=== PATIENT | female | born 1935 | race Caucasian/White ===

== ENCOUNTER → 2016-09-08 | Outpatient (CLI) | payer MEDICARE, OTHER ==
--- NOTE | 2016-09-08 14:16 | PCVCIMAG ---
APPROVED REPORT Patient Location: Out-Patient Indications Stenosis Doppler Spectral Velocity Analysis PSV / EDVPSV / EDV ECA (R) 90 / 4 cm/sECA (L) 139 / 11 cm/s dICA (R) 76 / 19 cm/sdICA (L) 71 / 16 cm/s [place] (R) 91 / 31 cm/smICA (L) 107 / 20 cm/s pICA (R) 88 / 23 cm/spICA (L) 103 / 19 cm/s Bulb (R) 76 / 13 cm/sBulb (L) 92 / 14 cm/s dCCA (R) 67 / 13 cm/sdCCA (L) 74 / 16 cm/s mCCA (R) 51 / 11 cm/smCCA (L) 67 / 13 cm/s Vert (R) 48 / 8 cm/sVert (L) 46 / 11 cm/s Findings The right carotid bulb has moderate calcified plaque. The right proximal internal carotid artery shows <40% stenosis. The right common carotid artery shows no significant stenosis. The right external carotid artery shows <40% stenosis. The left carotid bulb has moderate calcified plaque. The left proximal internal carotid artery shows 40-50% stenosis. The left common carotid artery shows no significant stenosis. The left external carotid artery shows <50% stenosis. Conclusion 1. Right internal carotid artery stenosis (<40%) 2. Left internal carotid artery stenosis (40-50%) 3. Antegrade vertebral flow
--- NOTE | 2016-09-08 15:53 | PCVCIMAG ---
APPROVED REPORT Study performed: 09/08/2016 13:42:15 EXAM: Comprehensive 2D, Doppler, and color-flow Echocardiogram Patient Location: Echo lab Status: routine Other Information Study Quality: Good Indications Aortic Valve Disease Diabetes Hypertension/HDD 2D Dimensions IVSd: 8.78 (7-11mm)LVOT Diam: 20.16 (18-24mm) LVDd: 43.04 mm PWd: 7.62 (7-11mm)Ascending Ao: 29.74 (22-36mm) LVDs: 23.37 (25-40mm) Left Atrium: 29.96 (27-40mm) Aortic Root: 20.05 mm LV Single Plane 4CH: 65.95 % LV Single Plane 2CH: 60.38 %[place]'s LVEF: 63.17 % Biplane EF: 62.7 % Volumes Left Atrial Volume (Systole) Single Plane 4CH: 48.13 mLSingle Plane 2CH: 46.78 mL LA ESV Index: 28.00 mL/m2 Aortic Valve AoV Peak Francisco Javier.: 2.30 m/s AO Peak Gr.: 22.57 mmHgLVOT Max P.44 mmHg AO Mean Gr.: 11.56 mmHgLVOT Mean P.87 mmHg AO V2 Mean: 1.63 m/sLVOT Max V: 0.94 m/s AO V2 VTI: 53.02 cmLVOT Mean V: 0.64 m/s MARY (VTI): 1.26 [id number] V1 VTI: 20.88 cm MARY Vmax: 1.30 cm2 AI Vmax: 4.08 m/sSV (LVOT): 66.61 mL AI Dubois: 1.91 m/s2 AI PHT: 618.97 ms Mitral Valve E/A Ratio: 0.6 MV Decel. Time: 283.13 ms MV E Max Francisco Javier.: 0.38 m/s MV A Francisco Javier.: 0.60 m/s IVRT: 103.81 ms TDI E/Lateral E': 12.67E/Medial E': 12.67 Medial E' Francisco Javier.: 0.03 m/s Lateral E' Francisco Javier.: 0.03 m/s Pulmonary Valve PV Peak Francisco Javier.: 0.96 m/sPV Peak Gr.: 3.72 mmHg Pulmonary Vein P Vein S: 0.47 m/sP Vein A: 0.28 m/s P Vein D: 0.37 m/sP Vein A Dur.: 93.4 msec P Vein S/D Ratio: 1.27 Tricuspid Valve TV Vmax: 0.54 m/s Left Ventricle The left ventricle is normal size. There is normal LV segmental wall motion. There is normal left ventricular wall thickness. Left ventricular systolic function is normal. The left ventricular ejection fraction is within the normal range. LVEF is 60-65%. Grade I diastolic dysfunction Right Ventricle The right ventricle is normal size. The right ventricular systolic function is normal. Atria The left atrium size is normal. The right atrium size is normal. Aortic Valve Aortic valve is trileaflet, moderately calcified. Mild aortic regurgitation. Moderate aortic stenosis. Peak aortic valve gradient is 21_mmHg. Highest mean aortic valve gradient is 12 mmHg Calculated MARY by the continuity equation is 1.3 cm2. Calculated aortic valve area is 1.3 cm2 with maximum pressure gradient of 21 mmHg and mean pressure gradient of 12 mmHg. Mitral Valve The mitral valve is normal in structure. There is no mitral valve regurgitation noted. No evidence of mitral valve stenosis. Tricuspid Valve The tricuspid valve is normal in structure. There is no tricuspid valve regurgitation noted. Pulmonic Valve The pulmonary valve is normal in structure. There is no pulmonic valvular regurgitation. Great Vessels The aortic root is normal in size. The ascending aorta is normal in size. IVC is normal in size and collapses with >50% inspiration The pulmonary artery is normal. Pericardium There is no pericardial effusion. There is no pleural effusion. <Conclusion> LVEF is 60-65%. Normal LV segmental wall motion. Grade I diastolic dysfunction Aortic valve is trileaflet, moderately calcified. Mild aortic regurgitation, mild stenosis (aortic valve area is 1.3 cm2, peal pressure gradient of 21 mmHg, mean pressure gradient of 12 mmHg). Moderate mitral annular calcification. No mitral insufficiency Pulmonary artery pressure could not be reliably ascertained. There is no pericardial effusion.
== END | disposition home or self-care (01) ==
LOC: PCVCIMAG 12:52
PROVIDERS: ATTEND Internal Medicine
DX: I65.23 Occlusion and stenosis of bilateral carotid arteries (principal); I35.0 Nonrheumatic aortic (valve) stenosis; E11.9 Type 2 diabetes mellitus without complications; E78.5 Hyperlipidemia, unspecified; I10 Essential (primary) hypertension; Z85.038 Personal history of other malignant neoplasm of large intestine; Z90.49 Acquired absence of other specified parts of digestive tract; Z79.82 Long term (current) use of aspirin
CPT/HCPCS: 80061; 93306; 93880; G0463

== ENCOUNTER → 2017-09-10 | Outpatient (CLI) | payer MEDICARE, OTHER | END | disposition home or self-care (01) | LOC: PCVCCLINIC 14:19 | DX: I35.0 Nonrheumatic aortic (valve) stenosis (principal); I10 Essential (primary) hypertension; E78.5 Hyperlipidemia, unspecified; I65.23 Occlusion and stenosis of bilateral carotid arteries; E11.9 Type 2 diabetes mellitus without complications; Z79.899 Other long term (current) drug therapy | CPT/HCPCS: 80061; 93005; G0463 ==

== ENCOUNTER → 2018-01-23 | Outpatient (CLI) | payer MEDICARE, OTHER ==
--- NOTE | 2018-01-23 14:20 | PCVCIMAG ---
APPROVED REPORT Indications Stenosis Risk Factors Hypertension: Hyperlipidemia Diabetes, Doppler Spectral Velocity Analysis PSV / EDVPSV / EDV ECA (R) 89 / 0 cm/sECA (L) 102 / 5 cm/s dICA (R) 83 / 21 cm/sdICA (L) 74 / 22 cm/s [place] (R) 73 / 19 cm/smICA (L) 76 / 16 cm/s pICA (R) 103 / 24 cm/spICA (L) 130 / 25 cm/s Bulb (R) 55 / 12 cm/sBulb (L) 72 / 13 cm/s dCCA (R) 53 / 9 cm/sdCCA (L) 69 / 11 cm/s mCCA (R) 69 / 10 cm/smCCA (L) 54 / 9 cm/s Vert (R) 47 / 10 cm/sVert (L) 48 / 8 cm/s ICA/CCA 1.94ICA/CCA 1.88 Basic Measurements Blood Pressure: Pulses: Right Left RightLeft Brachial(Sitting) 146/[id number]/80mmHgTemporal Real Time B-Mode Imaging Vert. (R)AntegradeVert. (L)Antegrade Findings The right carotid bulb has moderate calcified plaque. The right proximal internal carotid artery shows <40% stenosis. The right common carotid artery shows no significant stenosis. The right external carotid artery shows no significant stenosis. The left carotid bulb has moderate calcified plaque. The left proximal internal carotid artery shows 40-50% stenosis. The left common carotid artery shows no significant stenosis. The left external carotid artery shows no significant stenosis. Conclusion 1. Right internal carotid artery stenosis (<40%) 2. Left internal carotid artery stenosis (40-50%) 3. Left common carotid artery stenosis (<40%) 4. Antegrade vertebral flow Similar to a study dated August 2016
== END | disposition home or self-care (01) ==
LOC: PCVCIMAG 13:08
PROVIDERS: ATTEND Internal Medicine
DX: I65.23 Occlusion and stenosis of bilateral carotid arteries (principal); I35.0 Nonrheumatic aortic (valve) stenosis; I10 Essential (primary) hypertension; E78.5 Hyperlipidemia, unspecified; E11.9 Type 2 diabetes mellitus without complications; E78.00 Pure hypercholesterolemia, unspecified; H34.211 Partial retinal artery occlusion, right eye; Z79.82 Long term (current) use of aspirin
CPT/HCPCS: 36415; 80061; 93005; 93880; G0463

== ENCOUNTER → 2018-04-03 | Outpatient (CLI) | payer MEDICARE, OTHER | END | disposition home or self-care (01) | LOC: PCVCCLINIC 13:14 | PROVIDERS: ATTEND Internal Medicine | DX: I10 Essential (primary) hypertension (principal); I35.0 Nonrheumatic aortic (valve) stenosis; I95.1 Orthostatic hypotension; R06.02 Shortness of breath; E78.5 Hyperlipidemia, unspecified; I65.23 Occlusion and stenosis of bilateral carotid arteries; E11.9 Type 2 diabetes mellitus without complications; E78.00 Pure hypercholesterolemia, unspecified; Z79.82 Long term (current) use of aspirin | CPT/HCPCS: 36415; 80061; G0463 ==

== ENCOUNTER → 2018-05-01 | Outpatient (CLI) | payer MEDICARE, OTHER ==
[~2018-05-01] MED LIST: REGADENOSON 0.4 MG/5 ML DISP.SYRIN. IV ONE
--- NOTE | 2018-05-01 16:50 | PCVCIMAG ---
APPROVED REPORT Imaging Protocol: Rest Tc-99m/Stress Tc-99m 1 day Study performed: 05/01/2018 09:18:30 Indication: Dyspnea, Progressive Fatigue, Near Syncope Patient Location: Out-Patient Stress Nurse: Nina Hess RN, Christy Vieyra RN [place] Tech:Shyanne WILBERT MayorgaMT Ht: 5 ft 3 in Wt: 178 lbs BSA: 1.84 m2 HR: 58 bpm BP: 190/77 mmHg BMI: 31.5 Rhythm: Sinus Rhythm, Left anterior fascicular block Medical History Medical History: HTN, Diabetes, CVD Medications: ASA, Atorvastatin, Lisinopril Allergies: No known drug allergies Cardiac Risk Factors: Age Pretest Chest Pain Characteristics: No chest pain Resting Data Rest SPECT myocardial perfusion imaging was performed in supine position 45 minutes following the intravenous injection of 10.4 mCi of Tc-99m Sestamibi. Time of rest injection: 929 Date: 05/01/2018 Administration Route: IV Administration Site: Right AC Pharmacologic Stress Pharmacologic stress test was performed by injecting Regadenoson 0.4 mg IV push over 10-15 seconds immediately followed by the intravenous injection of 32.8 mCi of Tc-99m Sestamibi. Time of stress injection: 1050 Date: 05/01/2018 Administration Route: IV Administration Site: Right AC Gated Stress SPECT was performed 45 minutes after stress injection. The images were gated to evaluate regional wall motion and calculate left ventricular ejection fraction. Comments Prior Nuclear Stress Test 2014: Nonischemic Stress Test Details Stress Test: Pharmacologic stress testing performed using 0.4 mg of regadenoson per 5 mL given IV over 10 seconds. Reason for pharmacologic stress test: Unsteady gait. HRMax Heart Rate (APMHR): 136 bpm Resting HR: 58 bpmTarget HR (85% APMHR): 115 bpm Max HR Achieved: 89 bpm % of APMHR: 65 Recovery HR: 81 bpm BP Resting BP: 190/77 mmHg Max BP: 192/81 mmHg Recovery BP: 166/78 mmHg ECG Resting ECG: Sinus Bradycardia, left anterior fascicular block Stress ECG: Sinus Rhythm, left anterior fascicular block ST Change: None Maximum ST Deviation: 0 mm Arrhythmia: None Recovery ECG: Sinus Rhythm, left anterior fascicular block Recovery ST Change: None Recovery ST Deviation: 0 mm Recovery Arrhythmia: None Clinical Reason for Termination: Completed protocol Stress Symptoms: None Exercise duration: 0 min 55 sec Stress ECG Conclusion ECG: Non-ischemic Clinical: Non-ischemic Study Quality Study: Good Study Data Post stress, the left ventricular ejection was 66%.. SSS: 5 SRS: 0 SDS: 5 TID = 1.13. Perfusion No evidence of stress induced ischemia or prior myocardial infarction. Wall Motion Normal left ventricular size and function with no regional wall motion abnormalities. Nuclear Conclusion No evidence of stress induced ischemia or prior myocardial infarction. Normal left ventricular size and function with no regional wall motion abnormalities. Post stress, the left ventricular ejection was 66%. No prior study available for comparison. Interpreted by: Julio Jimenez MD Electronically Approved: 05/01/2018 15:22:09 <Conclusion> ECG: Non-ischemic Clinical: Non-ischemic
== END | disposition home or self-care (01) ==
LOC: PCVCIMAG 13:14
PROVIDERS: ATTEND Internal Medicine
DX: R55 Syncope and collapse (principal); R06.00 Dyspnea, unspecified; R53.83 Other fatigue; I35.0 Nonrheumatic aortic (valve) stenosis; E11.9 Type 2 diabetes mellitus without complications
CPT/HCPCS: 78452; 93017; A9500; J2785

== ENCOUNTER → 2018-10-30 | Outpatient (CLI) | payer MEDICARE, OTHER | END | disposition home or self-care (01) | LOC: PCVCCLINIC 14:00 | PROVIDERS: ATTEND Internal Medicine | DX: I10 Essential (primary) hypertension (principal); I35.0 Nonrheumatic aortic (valve) stenosis; I95.1 Orthostatic hypotension; R06.02 Shortness of breath; E78.5 Hyperlipidemia, unspecified; I65.23 Occlusion and stenosis of bilateral carotid arteries; E11.9 Type 2 diabetes mellitus without complications | CPT/HCPCS: 93005; G0463 ==

== ENCOUNTER → 2018-12-10 | Outpatient (CLI) | payer MEDICARE, OTHER ==
--- NOTE | 2018-12-10 16:26 | PCVCIMAG ---
APPROVED REPORT Indications Stenosis CVA/TIA: Motor Deficit, Risk Factors Hypertension: Hyperlipidemia Diabetes Doppler Spectral Velocity Analysis PSV / EDVPSV / EDV ECA (R) 107 / 5 cm/sECA (L) 167 / 14 cm/s dICA (R) 76 / 19 cm/sdICA (L) 64 / 16 cm/s [place] (R) 86 / 22 cm/smICA (L) 128 / 26 cm/s pICA (R) 92 / 19 cm/spICA (L) 123 / 21 cm/s Bulb (R) 78 / 16 cm/sBulb (L) 64 / 0 cm/s dCCA (R) 78 / 12 cm/sdCCA (L) 66 / 13 cm/s mCCA (R) 81 / 16 cm/smCCA (L) 68 / 14 cm/s Vert (R) 55 / 14 cm/sVert (L) 57 / 14 cm/s ICA/CCA 1.18ICA/CCA 1.94 Basic Measurements Blood Pressure: Pulses: Right Left RightLeft Brachial(Sitting) 150/47zmWr299/80mmHgTemporal Findings The right carotid bulb has moderate calcified plaque. The right proximal internal carotid artery shows <40% stenosis. The right common carotid artery shows <40% stenosis. The right external carotid artery shows no significant stenosis. The left carotid bulb has moderately severe calcified plaque. The left proximal internal carotid artery shows 40-50% stenosis. The left common carotid artery shows <40% stenosis. The left external carotid artery shows >50% stenosis. Conclusion 1. Right and left common carotid artery stenoses (<40%) 2. Right internal carotid artery stenosis (<40%) 3. Left internal carotid artery stenosis (40-50%) 4. Antegrade vertebral flow Similar to August 2016
== END | disposition home or self-care (01) ==
LOC: PCVCIMAG 14:45
PROVIDERS: ATTEND Internal Medicine
DX: I65.23 Occlusion and stenosis of bilateral carotid arteries (principal); E11.9 Type 2 diabetes mellitus without complications; H34.211 Partial retinal artery occlusion, right eye; E78.00 Pure hypercholesterolemia, unspecified; I10 Essential (primary) hypertension; Z85.038 Personal history of other malignant neoplasm of large intestine; Z90.49 Acquired absence of other specified parts of digestive tract; Z82.49 Family history of ischemic heart disease and other diseases of the circulatory system; Z72.89 Other problems related to lifestyle
CPT/HCPCS: 93880